=== PATIENT | female | born 1960 | race Caucasian/White ===

== ENCOUNTER 2019-02-01 00:16 | Outpatient (CLI) | payer BC, SELFPAY ==
--- NOTE | 2019-02-01 16:18 | DI.RAD_ITS ---
SYMPTOM/DIAGNOSIS: PAIN, M25.561 RIGHT KNEE: The bony structures are normally mineralized. The joint space is intact. There is no evidence of a fracture or dislocation.
== END 2019-02-01 00:36 ==
PROVIDERS: Visit Provider Chiropractor
DX: M25.561 Pain in right knee (principal)
CPT/HCPCS: 73562